=== PATIENT | male | born 1940 | race Caucasian/White ===

== ENCOUNTER 2018-01-23 14:28 | Day surgery (SDC) | payer MEDICARE ==
[2018-01-23] VITALS (7 sets, daily range): BP systolic 141–167; BP diastolic 58–102
[~2018-01-23] VITALS: Ht 185.4 cm; Wt 115.0 kg
[2018-01-23] MEDS: normal saline 1000ml 1,000 ML IV SCH (14:55)
[2018-01-23] MEDS ORDERED: NITR0.4T51 SL (15:03)
[2018-01-23] MEDS ORDERED: LISI-600 PO (15:03)
[2018-01-23] MEDS ORDERED: ATOR40TA PO (15:03)
[2018-01-23] MEDS ORDERED: OMEG1CAP21 PO (15:03)
[2018-01-23] MEDS ORDERED: ASCO500C15 PO (15:03)
[2018-01-23] MEDS ORDERED: METO-395 PO (15:03)
[2018-01-23] MEDS ORDERED: ASPI-1265 PO (15:03)
[2018-01-23] MEDS: diphenhydrAMINE 25mg capsule PO ONE (15:51)
[2018-01-23] MEDS: LORazepam 0.5 MG tablet PO ONE ×2 (15:51→15:58)
[2018-01-23] MEDS ORDERED: fentaNYL/PF 50MCG/1 ML 2ML syringe ONE (17:59)
[2018-01-23] MEDS ORDERED: heparin 1,000 UNITS/NS 500ml 500 ML ONE ×2 (17:59)
[2018-01-23] MEDS ORDERED: midazolam 2 mg/2 ml injection ONE ×2 (17:59→18:11)
[2018-01-23] MEDS ORDERED: LIDOcaine 1% (10mg/ml)w/preservative injection 20ml MDV ONE (18:00)
[2018-01-23] MEDS ORDERED: iohexol 350MG/ML 100ml bottle IV ONE (18:07)
[2018-01-23] MEDS ORDERED: ticagrelor 90mg tablet ONE (18:21)
[2018-01-23] MEDS ORDERED: heparin 1,000unit/ml 10ml vial 10 ML ONE (18:21)
[2018-01-23] MEDS ORDERED: HYDROcodone/acetaminophen 10/325mg tab PO PRN (19:05)
[2018-01-23] MEDS ORDERED: HYDROcodone/acetaminophen 5mg/325mg tablet PO PRN (19:05)
[2018-01-23] MEDS ORDERED: proCHLORperazine 10 MG/2 ml inj IV PRN (19:05)
[2018-01-23] MEDS ORDERED: ondansetron/PF 4mg/2ml inj IV PRN (19:05)
== END 2018-01-23 20:40 | disposition home or self-care (01) ==
LOC: SSTAY O 14:28
PROVIDERS: ATTEND Internal Medicine Interventional Cardiology
DX: I25.110 Atherosclerotic heart disease of native coronary artery with unstable angina pectoris (principal); I10 Essential (primary) hypertension; E78.5 Hyperlipidemia, unspecified; I44.7 Left bundle-branch block, unspecified; I42.8 Other cardiomyopathies; I25.2 Old myocardial infarction; M19.90 Unspecified osteoarthritis, unspecified site; Z87.891 Personal history of nicotine dependence; Z72.89 Other problems related to lifestyle; Z86.19 Personal history of other infectious and parasitic diseases; Z86.74 Personal history of sudden cardiac arrest; Z95.5 Presence of coronary angioplasty implant and graft; Z79.82 Long term (current) use of aspirin; Z79.899 Other long term (current) drug therapy; Z98.890 Other specified postprocedural states; Z82.49 Family history of ischemic heart disease and other diseases of the circulatory system
CPT/HCPCS: 93005; 93458; 99152; 99153; A6257; C1874; C9600; J1644; J2001; J2250; J3010; J7030; Q0163; Q9967; A4620; C1769